=== PATIENT | female | born 1975 | race Caucasian/White ===

== ENCOUNTER 2024-03-12 00:20 | Day surgery (SDC) | payer OTHER, SELFPAY ==
[2024-03-08 16:06] VITALS: BMI 24.8
--- NOTE | 2024-03-08 16:12 | SUR.PREOP ---
Report to the Outpatient Waiting Room, entrance under the green pavilion located off [facility], at time 0600 on date 03/12/24. Planned Procedure Time: _0730_.? Time changes happen often and if your time is changed the preop area will call you the afternoon before. - You and your visitor will be asked to self-screen and do not enter if you have any COVID symptoms. Please call surgeon if you need to reschedule. - A mask is optional within the hospital at this time. Patients may have clear liquids (water, carbonated beverages, clear teas, apple juice) until 3 hours prior to surgery with a maximum of 20 ounces. - No food from midnight until time of surgery and no smoking. This includes no chewing gum, candy or mints. - Infants may have breast milk until 4 hours before surgery, infant formula 6 hours prior to surgery. - Children will be allowed to drink immediately following surgery.? If applicable, please bring a bottle or sippy cup to assist with drinking. Juice, water, soda, and popsicles are readily available.? For infants on formula, please bring formula the day of surgery.? Pacifiers are allowed. Take only the following medications with a SIP of water on the morning of surgery: ADDERALL, LEVOXYL DO NOT STOP ANY OF YOUR OTHER PRESCRIPTION MEDICATIONS PRIOR TO SURGERY EXCEPT THE FOLLOWING Medications to discontinue per physician LOSARTAN/HCTZ MORNING OF SURGERY Date to take last dose Please no make-up, nail french, hairspray, perfume, deodorant, or body powder the day of surgery.? No jewelry (including any body piercings) or valuables the day of surgery, leave them at home.? Please take a shower or bath the night before, or the morning of, surgery with an antibacterial soap.? Wear comfortable, loose fitting clothing.? Children are encouraged to wear pajamas. - Jewelry must be removed prior to entering the operating room.? Rings and piercings that are not removed may be cut off. - The hospital will not accept responsibility for valuables.? - Please leave all valuables, including medications, at home the day of surgery. If you are going home after surgery, a licensed road train driver must drive you home.? - NO public transportation without another adult if you receive anesthesia. - We recommend that an adult stay with you for 24 hours following discharge. - We also recommend that you do not drive, make important decision, drink alcoholic beverages, or take any drugs that were not prescribed by your health care provider for at least 24 hours after your discharge time. For Pediatric surgeries, we recommend two adults accompany the child home. Follow any additional instructions given to you from your surgeon. Telephone instructions given to __PATIENT__and asked if any additional questions and then verbalized understanding. Patient advised to call surgeon office or pre surgery nurse liaison [phone] if any additional questions.
[2024-03-12 06:15] VITALS: BP 131/80; PULSE 71; RESP 14; TEMP 36.2; O2SAT 100
[2024-03-12 06:17] LABS: BEDSIDEPREGUCG Negative (Negative)
[2024-03-12] MEDS: LACTATED RINGERS 1,000 ML 30 ML IV CONT (06:30)
[2024-03-12] MEDS: ACETAMINOPHEN 500 MG TABLET 1000 MG PO (06:35)
[2024-03-12 06:47] LABS: Anion Gap -1 mmol/L (4-12); Blood Urea Nitrogen 10 mg/dL (7-17); Calcium 8.4 mg/dL (8.4-10.2); Carbon Dioxide 29 mmol/L (22-30); Chloride 107 mmol/L (98-107); Estimated CRCL calculation 84 ml/min; Estimated Glomerular Filt Rate > 60; Glucose 87 mg/dL (65-110); Potassium 3.5 mmol/L (3.4-5.0); Sodium 135 mmol/L (137-145)
--- NOTE | 2024-03-12 06:51 | WPDANESEPPF ---
Anes - Initial Pre Proc Eval Procedure: Operation Date: 03/12/24 07:30 Proposed Procedures p Hysteroscopy with Biopsy of Endometrium and/or Polypectomy - Deon Thorpe MD Date/Time: 03/12/24 06:51 Surgeon: Deon Thorpe MD Pre Op Diagnosis: endometrial polyp Patient Data Age: 48 Gender: F Height: 1.63 m Weight: 67.1 kg Last Vital Signs Temp 36.2 C L 03/12/24 06:15 Pulse 71 03/12/24 06:15 Resp 14 03/12/24 06:15 BP 131/80 03/12/24 06:15 Pulse Ox 100 03/12/24 06:15 Allergies Allergy/AdvReac Type Severity Reaction Status Date / Time No Known Allergies Allergy Unknown Verified 03/12/24 06:36 Home Medications ?Medication ?Instructions ?Recorded ?Confirmed ?Type dextroamphetamine-amphetamine 10 10 mg PO DAILY 03/08/24 03/12/24 History mg tablet esomeprazole magnesium 20 mg 20 mg PO DAILY 03/08/24 03/12/24 History capsule,delayed release (Nexium) levothyroxine 88 mcg tablet 88 mcg PO DAILY 03/08/24 03/12/24 History (Levoxyl) losartan 100 1 tablet PO DAILY 03/08/24 03/12/24 History mg-hydrochlorothiazide 12.5 mg tablet zolpidem 10 mg tablet 10 mg PO DAILY 03/08/24 03/12/24 History Laboratory Tests 03/12/24 03/12/24 06:15 06:21 Sodium 135 L mmol/L (137-145) Potassium 3.5 mmol/L (3.4-5.0) Chloride 107 mmol/L (98-107) Carbon Dioxide 29 mmol/L (22-30) Anion Gap -1 L mmol/L (4-12) BUN 10 mg/dL (7-17) Creatinine 0.60 L mg/dL (0.7-1.0) Estim Creat Clear Calc 84 ml/min Estimated GFR > 60 (59 - ) Glucose 87 mg/dL (65-110) Calcium 8.4 mg/dL (8.4-10.2) POC Urine HCG, Qual Negative (Negative) Patient hx anesthesia problems: none Family hx anesthesia problems: none Results Review: All pre-operative results and documents have been reviewed as part of the pre-operative evaluation. [facility] Social History Social History (Updated 03/12/24 @ 07:01 by Travis Vazquez DO) Smoking status: Never smoker Living arrangements: with family Spiritual care concerns: No Anes - Eval Final PreProcedure Day of Procedure 03/12/24 06:51 Patient weight: overweight Heart: regular rate and rhythm Lungs: clear to auscultation Airway: Mallampati scale class II Neurological: alert and oriented Last oral intake: >/= 8 hours ASA classification: III Emergent: no Anesthetic plan: proceed Anesthesia type and monitoring: general GIVS and standard monitoring Results Review: All pre-operative results and documents have been reviewed as part of the pre-operative evaluation. Informed Consent: The patient's anesthetic plan and its attendant risks and benefits were discussed with the patient/family/POA. Questions were solicited and answers provided to the satisfaction of the patient/family/POA.
[2024-03-12 07:06] LABS: BEDSIDEPREGUCG Negative (Negative)
--- NOTE | 2024-03-12 07:22 | PM.IMHP ---
H&P: HPI History of Present Illness Date/Time: 03/12/24 07:22 Chief Complaint: irregular menses Narrative: Patient is a 48 year old female who presents for hysteroscopy, polypectomy, and D&C. She has a recent history of irregular intermenstrual bleeding. She underwent pelvic US that demonstrated a fundal vascularity of the endometrium, suspicious for endometrial polyp. Risks and benefits of surgery were reviewed with patient who desires to proceed with the procedure as above. Denies fevers, chills, abdominal pain, or dysuria. Review of Systems Review of Systems: All systems reviewed & are unremarkable except as noted in HPI and below PMFSH Social History Social History Smoking status: Never smoker Living arrangements: with family Spiritual care concerns: No Meds Home Medications and Allergies Home Medications ?Medication ?Instructions ?Recorded ?Confirmed ?Type dextroamphetamine-amphetamine 10 10 mg PO DAILY 03/08/24 03/12/24 History mg tablet esomeprazole magnesium 20 mg 20 mg PO DAILY 03/08/24 03/12/24 History capsule,delayed release (Nexium) levothyroxine 88 mcg tablet 88 mcg PO DAILY 03/08/24 03/12/24 History (Levoxyl) losartan 100 1 tablet PO DAILY 03/08/24 03/12/24 History mg-hydrochlorothiazide 12.5 mg tablet zolpidem 10 mg tablet 10 mg PO DAILY 03/08/24 03/12/24 History Allergies Allergy/AdvReac Type Severity Reaction Status Date / Time No Known Allergies Allergy Unknown Verified 03/12/24 06:36 Vital Signs Vital Signs - 24 hr 03/12/24 06:15 Temperature 97.1 F L Pulse Rate 71 Respiratory Rate 14 Blood Pressure 131/80 Pulse Oximetry 100 Exam Const: General: comfortable and no acute distress HENMT: Mouth: Yes moist mucous membranes Eyes: General: appearance normal, both eyes and all related structures Resp: Effort & Inspection: normal respiratory effort Cardio: Rate: regular rate Extrem: General: normal to inspection Psych: Mental Status: mental status grossly normal H&P: Results Labs Labs: [facility] 03/12/24 06:21 Sodium 135 L Potassium 3.5 Chloride 107 Carbon Dioxide 29 BUN 10 Creatinine 0.60 L Glucose 87 Calcium 8.4 Assessment and Plan Assessment and plan (1) Irregular intermenstrual bleeding: Code(s): N92.1 - Excessive and frequent menstruation with irregular cycle Status: Acute Assessment and Plan: - pelvic US demonstrates fundal endometrial vascularity, suspicious for endometrial polyp - discussed risks, benefits, and alternatives to surgery with patient - patient desires to proceed with hysteroscopy, polypectomy and D&C
--- NOTE | 2024-03-12 07:25 | WPDHPUPDATE1 ---
History and Physical Update Update Date/Time: 03/12/24 07:25 History and Physical has been reviewed, including an updated exam of the patient. There are NO changes in the patient's condition. Risks, benefits, and alternatives have been discussed and questions answered. Patient agrees to proceed with procedure.
[2024-03-12] MEDS: LIDO 1%/EPINEPHRINE 1:100,000 50 ML VIAL 10 ML INFILTRATE (07:53)
[2024-03-12 08:00] VITALS: BP 105/56; PULSE 86; RESP 10; O2SAT 98
--- NOTE | 2024-03-12 08:04 | P.OP_ITS ---
Procedure Note - Detailed Date of Procedure 03/12/24 Pre-op Diagnosis endometrial polyp Post-op Diagnosis Same Procedure Performed hysteroscopy, polypectomy and D&C Surgeon Deon Thorpe MD Anesthesia MAC Findings normal appearing tubal ostia; fluffy endometrium throughout cavity; small polyp vs scar tissue in upper right fundal region Description of Procedure The patient was taken to the operating room with IVFs running. She was placed into the dorsal supine position where she received MAC without any difficulty. The patient was placed in the dorsal lithotomy position using Hudson stirrups. EUA revealed findings as above. She was then prepped and draped in a normal sterile fashion. A time-out procedure was performed and all members of the OR team agreed on the patient and plan. A bivalve speculum was then inserted into the patient's vagina. The anterior lip of the cervix was grasped with a single tooth tenaculum. A paracervical block was placed using 10cc of 1% lidocaine with epinephrine. The uterus was gently sounded to 9 cm. The hysteroscope was then inserted into the uterine cavity using saline as the distension media and revealed the above findings. Both ostia were identified and pictures were taken. At this point, the morcellator was then introduced into the hysteroscope and calibrated. The tip of the morcellator was then applied to the polyp and activated. The polyp was removed to its base. The hysteroscope and morcellator were removed from the cavity and a curettage was performed to remove any remaining polyp using a medium sized curette. At the end of the procedure, the uterine cavity was clear of all pathology. The fluid defic it was 90 cc. The specimen was sent for pathology. The tenaculum was removed. The anterior lip of the cervix was hemostatic. The speculum was then removed. The patient tolerated the procedure well. Sponge, lap, and instrument counts were correct X2. The patient was taken out of the dorsal lithotomy position and was awakened from anesthesia. She was taken to the recovery room in stable condition. Estimated Blood Loss 10 Pathology Yes Complications No immediate complications Condition Stable Disposition Same day
[2024-03-12 08:30] VITALS: BP 118/69; PULSE 53; RESP 12; O2SAT 100
[2024-03-12 08:45] VITALS: BP 124/73; PULSE 53; RESP 12
== END 2024-03-12 08:58 | disposition home or self-care (01) ==
PROVIDERS: Anesthesiology; PCP Internal Medicine; Visit Provider Obstetrics & Gynecology
PROC: 0U5B8ZZ Destruction of Endometrium, Via Natural or Artificial Opening Endoscopic (ICD-10-PCS; CPT 58563; principal; 2024-03-12 07:30)
DX: N84.0 Polyp of corpus uteri (principal)
CPT/HCPCS: 58558; 36415; 80048; 88305; A9270; J1100; J2003; J2004; J2250; J2405; J2704; J3010; J7120